=== PATIENT | male | born 1995 | race Caucasian/White ===

== ENCOUNTER 2017-10-10 22:30 | Emergency (ER) | payer SELFPAY ==
[~2017-10-10] VITALS: Ht 177.8 cm; Wt 70.3 kg
--- NOTE | 2017-10-10 22:30 | NUR ---
bb girlfriend; "lightheaded x 4 days". VSS NAD A/OX4 ABLE TO MAKE NEEDS KNOWN. WILL CONTINUE TO MONITOR FOR ANY CHANGES DURING THE SHIFT.
[2017-10-11] MEDS ORDERED: ONDANSETRON HCL/PF 4 MG/2 ML VIAL ONE (00:47)
[2017-10-11] MEDS ORDERED: ONDANSETRON HCL/PF 4 MG/2 ML VIAL IVP ONE (01:00)
[2017-10-11] MEDS ORDERED: IV NS 0.9% 1,000 ML BAG IV ONE (01:00)
[2017-10-11 01:34] LABS: BASOPHILS % (AUTO) 0.2 % (0.0-2.0); EOSINOPHILS % (AUTO) 0.8 % (0.0-6.0); HEMATOCRIT 46 % (39-51); HEMOGLOBIN 15.4 g/dL (13.5-17.5); LYMPHOCYTES # (AUTO) 2.2 /CMM (0.8-4.8); LYMPHOCYTES % (AUTO) 21.4 % (20.0-44.0); MEAN CORPUSCULAR HEMOGLOBIN 28 PG (26.0-33.0); MEAN CORPUSCULAR HGB CONC 33 g/dl (31.0-36.0); MEAN CORPUSCULAR VOLUME 85 fL (80-96); MONOCYTES # (AUTO) 0.7 /CMM (0.1-1.30); MONOCYTES % (AUTO) 6.7 % (2.0-12.0); NEUTROPHILS # (AUTO) 7.3 /CMM (1.8-8.9); NEUTROPHILS % (AUTO) 70.9 % (43.0-81.0); PLATELET COUNT (AUTO) 304 /CMM (150-450); RED BLOOD CELL COUNT(AUTO) 5.41 MIL/uL (4.5-6.0); WHITE BLOOD COUNT (AUTO) 10.2 K/uL (4.3-11.0)
[2017-10-11 01:44] LABS: CALCIUM, SERUM 9.5 mg/dL (8.5-10.1); CREATININE 0.9 mg/dL (0.6-1.3); POTASSIUM 3.9 mmol/L (3.5-5.1)
[2017-10-11 02:04] VITALS: BP 133/80
== END 2017-10-11 02:04 | disposition home or self-care (01) ==
LOC: ER 22:34
DX: R11.0 Nausea (principal); R53.1 Weakness; F41.9 Anxiety disorder, unspecified; Z88.1 Allergy status to other antibiotic agents
CPT/HCPCS: 36415; 80048-TC; 85025-TC; A4606; J2405; J7030; Z7610

== ENCOUNTER 2017-10-14 21:04 | Emergency (ER) | payer OTHER ==
[~2017-10-14] VITALS: Ht 177.8 cm; Wt 70.3 kg
--- NOTE | 2017-10-14 21:10 | NUR ---
BBSELF C/C GENERAL HEAD PRESSURE X1.5 WEEKS WITH DIARRHEA X1WEEK."I SEE TINY BLACK DOTS AND LIGHTS ARE BRIGHTER". -TRAUMA.-DIZZY. NAD NOTED, VSS, RESP EVEN AND UNLABORED. PT WAS PUT ON MONITOR, WAITING FOR MD OROZCO.
[2017-10-14] MEDS ORDERED: diphenhydrAMINE HCL 50 MG/ML VIAL ONE (21:50)
[2017-10-14] MEDS ORDERED: METOCLOPRAMIDE HCL 10 MG/2 ML VIAL ONE (21:51)
[2017-10-14] MEDS ORDERED: KETOROLAC TROMETHAMINE INJ 30 MG/ML VIAL ONE (21:51)
[2017-10-14] MEDS: IV NS 0.9% 1,000 ML BAG IV ONE (22:08)
[2017-10-14] MEDS: diphenhydrAMINE HCL 50 MG/ML VIAL IV ONE (22:08)
[2017-10-14 22:09] LABS: BASOPHILS % (AUTO) 0.5 % (0.0-2.0); EOSINOPHILS % (AUTO) 1.1 % (0.0-6.0); HEMATOCRIT 45 % (39-51); HEMOGLOBIN 14.9 g/dL (13.5-17.5); LYMPHOCYTES # (AUTO) 1.9 /CMM (0.8-4.8); LYMPHOCYTES % (AUTO) 23.9 % (20.0-44.0); MEAN CORPUSCULAR HEMOGLOBIN 28 PG (26.0-33.0); MEAN CORPUSCULAR HGB CONC 33 g/dl (31.0-36.0); MEAN CORPUSCULAR VOLUME 85 fL (80-96); MONOCYTES # (AUTO) 0.6 /CMM (0.1-1.30); MONOCYTES % (AUTO) 7.4 % (2.0-12.0); NEUTROPHILS # (AUTO) 5.4 /CMM (1.8-8.9); NEUTROPHILS % (AUTO) 67.1 % (43.0-81.0); PLATELET COUNT (AUTO) 287 /CMM (150-450); RDW COEFFICIENT OF VARIATION 13.1 (11.5-15.0); RED BLOOD CELL COUNT(AUTO) 5.28 MIL/uL (4.5-6.0)
[2017-10-14] MEDS: KETOROLAC TROMETHAMINE INJ 30 MG/ML VIAL IV ONE (22:09)
[2017-10-14] MEDS: METOCLOPRAMIDE HCL 10 MG/2 ML VIAL IV ONE (22:09)
[2017-10-14 22:34] LABS: CALCIUM, SERUM 8.8 mg/dL (8.5-10.1); POTASSIUM 3.6 mmol/L (3.5-5.1)
[2017-10-14 22:43] LABS: INR 1.03 (0.87-1.13)
[2017-10-14 23:12] VITALS: BP 129/62
--- NOTE | 2017-10-14 23:13 | NUR ---
Patient discharged to home in stable condition. Written and verbal after care instructions given. Patient verbalizes understanding of instruction.IV removed. Catheter intact and site benign. Pressure and 4x4 applied to site. No bleeding noted.
== END 2017-10-14 23:17 | disposition home or self-care (01) ==
LOC: ER 21:10
DX: R51 Headache (principal); R19.7 Diarrhea, unspecified; Z88.1 Allergy status to other antibiotic agents; F90.9 Attention-deficit hyperactivity disorder, unspecified type
CPT/HCPCS: 36415; 70450-TC; 80048-TC; 85025-TC; 85730-TC; A4216; A4606; J1200; J1885; J2765; J7030; Z7610